=== PATIENT | male | born 1990 | race Caucasian/White ===

== ENCOUNTER 2016-07-21 09:51 | Emergency (ER) ==
[2016-07-21 10:50] LABS: URINE MICRO REVIEW NEEDED? NO; URINE SOURCE CLEAN CATCH
[2016-07-21 10:59] LABS: BILIRUBIN URINE NEGATIVE (NEGATIVE); BLOOD URINE NEGATIVE (NEGATIVE); COLOR YELLOW; GLUCOSE URINE NEGATIVE (NEGATIVE); LEUKOCYTES URINE NEGATIVE (NEGATIVE); NITRITE URINE NEGATIVE (NEGATIVE); PH URINE 6.5; PROTEIN URINE NEGATIVE (NEGATIVE); SP GRAVITY URINE 1.028; TURBIDITY URINE CLEAR (CLEAR); UROBILINOGEN URINE NORMAL (NORMAL)
[2016-07-21 11:01] LABS: UR EPITHELIAL CELLS <10 /HPF (<10); URINE BACTERIA NEGATIVE /HPF; URINE RBC <10 /HPF (<10); URINE WBC <10 /HPF (<10)
[2016-07-21 11:13] LABS: UR AMPHETAMINES QUAL NONE DETECTED (NONE DETECT); UR BARBITUATES QUAL NONE DETECTED (NONE DETECT); UR BENZODIAZEPIN QUAL NONE DETECTED (NONE DETECT); UR CANNABINOIDS QUAL NONE DETECTED (NONE DETECT); UR COCAINE QUAL NONE DETECTED (NONE DETECT); UR METHADONE QUAL NONE DETECTED (NONE DETECT); UR OPIATES QUAL NONE DETECTED (NONE DETECT); UR OXYCODONE QUAL NONE DETECTED (NONE DETECT); UR PCP QUAL NONE DETECTED (NONE DETECT)
[2016-07-21] MEDS ORDERED: FLEXERIL PO ONE (11:28)
[2016-07-21] MEDS ORDERED: NORCO-7.5 PO ONE (11:28)
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
[2016-07-21 11:53] LABS: MANUAL DIFF NEEDED? NO
[2016-07-21 12:08] VITALS: BP 129/93
[2016-07-21 12:21] LABS: BASO% 0.2 % (0.0-0.8); EOS# 0.38 X1000 (0.0-0.7); HEMATOCRIT 43.9 % (42.0-52.0); HEMOGLOBIN 14.5 g/dL (14.0-18.0); IMM GRAN# 0.08 X1000 (0.0-0.04); IMM GRAN% 0.6 % (0.0-0.5); LYMPH# 3.25 X1000 (1.2-3.4); LYMPH% 25.5 % (20.5-51.1); MCH 30.2 PG (27-31); MCV 91.5 FL (81-99); MONO# 1.22 X1000 (0.11-0.59); MONO% 9.6 % (1.7-9.3); MPV 9.6 FL (7.4-10.4); NEUT% 61.1 % (42.2-75.2); PLT 308 X1000 (130-400)
[2016-07-21 12:27] LABS: AGAP 11; ALBUMIN 3.5 g/dL (3.5-5.0); ALKALINE PHOSPHATASE 112 U/L (32-122); AMYLASE 35 U/L (20-200); BUN 18 mg/dL (8-22); CALCIUM 9.4 mg/dL (8.8-10.2); CHLORIDE 100 mmol/L (98-107); COSMO 276; GOT 22 U/L (10-34); GPT 47 U/L (10-44); LIPASE 25 U/L (13-60); POTASSIUM 4.1 mmol/L (3.5-5.1); SODIUM 137 mmol/L (136-145); TCO2 26 mmol/L (25-35); TOTAL BILIRUBIN 0.23 mg/dL (0.20-1.00); TOTAL PROTEIN 7.2 g/dL (6.3-8.3)
--- NOTE | 2016-07-21 12:30 | Diag Imaging Result Document ---
PROCEDURE NAME: RENAL STONE SEARCH - 07/21/2016 CT ABDOMEN AND PELVIS: COMPARISON: None. FINDINGS: No radiodense renal stones. No hydronephrosis or hydroureter. No bowel obstruction or inflammation. Normal appendix. Gallbladder is collapsed and, otherwise, normal. There are chronic bilateral L5 pars defects. No acute bony lesions. IMPRESSION: Negative exam.
--- NOTE | 2016-07-21 13:10 | Diag Imaging Result Document ---
PROCEDURE NAME: LUMBAR SPINE 2-VIEWS - 07/21/2016 LUMBAR SPINE, 2 VIEWS: FINDINGS: There is bilateral spondylolysis at L5 with grade 1 anterolisthesis of L5 on S1. No evidence of fracture or subluxation is present otherwise. IMPRESSION: Spondylolysis and spondylolisthesis.
== END 2016-07-21 13:20 | disposition home or self-care (01) ==
LOC: EDBD → ED 09:51
DX: M43.06 Spondylolysis, lumbar region (principal); M43.16 Spondylolisthesis, lumbar region; M54.5 Low back pain; G89.29 Other chronic pain; R10.9 Unspecified abdominal pain; W01.0XXA Fall on same level from slipping, tripping and stumbling without subsequent striking against object, initial encounter; R31.9 Hematuria, unspecified; R26.81 Unsteadiness on feet; F17.210 Nicotine dependence, cigarettes, uncomplicated; Z71.6 Tobacco abuse counseling; Z79.899 Other long term (current) drug therapy
CPT/HCPCS: 72100; 74176; 80053; 81001; 82150; 83690; 85025; G0480; 80324; 80345; 80346; 80349; 80353; 80358; 80361; 80365; 83992